=== PATIENT | male | born 1995 | race African-American/Black ===

== ENCOUNTER 2021-10-06 19:19 | Emergency (ER) | payer MEDICAID ==
[~2021-10-06] VITALS: Ht 190.5 cm; Wt 96.0 kg
[2021-10-06 19:38] VITALS: BP 135/82
[2021-10-06] MEDS ORDERED: TETANUS, DIPHTHERIA, PERTUSSIS VAC/PF 0.5ML (>10YR OLD) IM ONE (20:30)
[2021-10-06] MEDS ORDERED: LIDOCAINE HCL 1% 20ML VIAL (Pyxis) INJ INFIL ONE (21:00)
[2021-10-06] MEDS ORDERED: LIDOCAINE HCL 1% 10 MG/ML 10ML VIAL IJ NR (21:30)
[2021-10-06] MEDS ORDERED: NAPROXEN 375MG TABLET PO ONE (21:45)
[2021-10-06] MEDS ORDERED: NAPR-681 MT (21:51)
== END 2021-10-06 22:05 | disposition home or self-care (01) ==
LOC: ER 19:19
DX: S61.215A Laceration without foreign body of left ring finger without damage to nail, initial encounter (principal); W26.8XXA Contact with other sharp object(s), not elsewhere classified, initial encounter; Y93.89 Activity, other specified; Y92.018 Other place in single-family (private) house as the place of occurrence of the external cause
CPT/HCPCS: 12001; 99282; J3490

== ENCOUNTER 2021-10-13 16:33 | Emergency (ER) | payer MEDICAID ==
[~2021-10-13] VITALS: Ht 190.5 cm; Wt 100.0 kg
[~2021-10-13 16:33] MED LIST: NAPR-681 MT
[2021-10-13 17:01] VITALS: BP 128/74
== END 2021-10-13 18:01 | disposition home or self-care (01) ==
LOC: ER 16:33
DX: Z48.02 Encounter for removal of sutures (principal)
CPT/HCPCS: 99281